=== PATIENT | male | born 1975 | race Caucasian/White ===

== ENCOUNTER 2019-10-14 03:48 | Emergency (ER) | payer OTHER ==
[~2019-10-14] VITALS: Ht 185.4 cm; Wt 88.4 kg
[2019-10-14 04:58] LABS: BASOPHILS % (AUTO) 0 % (0-10); EOSINOPHILS # (AUTO) 0.1 10^3/uL (0.0-0.3); EOSINOPHILS % (AUTO) 1 % (0-10); HEMATOCRIT 50 % (40-54); HEMOGLOBIN 16.7 G/DL (13.3-17.7); LYMPHOCYTES # (AUTO) 1.7 X 10^3 (1.0-4.0); LYMPHOCYTES % (AUTO) 30 % (12-44); MEAN CORPUSCULAR HEMOGLOBIN 27 PG (25-34); MEAN CORPUSCULAR HGB CONC 34 G/DL (32-36); MEAN CORPUSCULAR VOLUME 81 FL (80-99); MEAN PLATELET VOLUME 9.6 FL (7.4-10.4); MONOCYTES # (AUTO) 0.5 X 10^3 (0.0-1.0); MONOCYTES % (AUTO) 8 % (0-12); NEUTROPHILS # (AUTO) 3.5 X 10^3 (1.8-7.8); NEUTROPHILS % (AUTO) 61 % (42-75); PLATELET COUNT 227 10^3/uL (130-400); RED CELL DISTRIBUTION WIDTH 14.9 % (10.0-14.5); WHITE BLOOD COUNT 5.7 10^3/uL (4.3-11.0)
--- NOTE | 2019-10-14 05:15 | ED General ---
General Chief Complaint: General Problems/Pain Stated Complaint: HYPOTHERMIA Nursing Triage Note: C/O BEING VERY COLD AFTER FALLING ASLEEP IN HIS TRUCK, VERBALIZES HE IS LIVING IN HIS TRUCK. Nursing Sepsis Screen: No Definite Risk Source of Information: Patient Exam Limitations: No Limitations History of Present Illness Date Seen by Provider: Oct 14, 2019 Time Seen by Provider: 03:51 Initial Comments This 44-year-old man presents to the emergency room via EMS. He activated EMS from his truck at the [employer] parking lot where he was sleeping because he thought he was developing hypothermia. He does not have a stable home to stay in so he is been sleeping in his truck. Temperature for EMS was 96.8. Temperature during our assessment was 98.0. He has a wound on his right elbow from infiltration at an injection site. The integrity of the skin on his hands and feet is also poor. He has some areas where there appears to been bruised or hemorrhaged calluses and/or blisters. There may also be some old subtle frostbite injury on the toes. Patient intermittently uses methamphetamines. He has not used in a couple of days. He also occasionally drinks alcohol. Allergies and Home Medications Patient Home Medication List Home Medication List Reviewed: Yes Review of Systems Review of Systems Constitutional: see HPI Respiratory: no symptoms reported Cardiovascular: no symptoms reported Gastrointestinal: no symptoms reported Genitourinary: no symptoms reported Musculoskeletal: no symptoms reported Skin: no symptoms reported Psychiatric/Neurological: See HPI Hematologic/Lymphatic: No Symptoms Reported Past Muvofly-Amvcje-Oyaist Hx Past Med/Social Hx: Reviewed Nursing Past Med/Soc Hx Patient Social History Alcohol Use: Rarely Uses Recreational Drug Use: Yes Drug of Choice: METH Smoking Status: Current Everyday Smoker Type Used: Cigarettes 2nd Hand Smoke Exposure: No Recent Foreign Travel: No Contact w/Someone Who Travel: No Recent Infectious Disease Expo: No Recent Hopitalizations: No Physical Abuse: No Sexual Abuse: No Mistreated: No Fear: No Immunizations Up To Date Tetanus Booster (TDap): Unknown Seasonal Allergies Seasonal Allergies: No Past Medical History Surgeries: No Respiratory: No Cardiac: Yes Hypertension, Peripheral Vascular Neurological: No Genitourinary: No Gastrointestinal: No Musculoskeletal: No Endocrine: No HEENT: No Cancer: No Psychosocial: No Integumentary: No Blood Disorders: No Physical Exam Vital Signs Vital Signs - First Documented 10/14/19 03:50 Temp 36.7 Pulse 84 Resp 20 B/P (MAP) 154/107 (123) Pulse Ox 98 Capillary Refill : Greater Than 3 Seconds Height, Weight, BMI Height: '" Weight: lbs. oz. 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 Norm as Tested Skin: Normal Color, Warm/Dry, Other (Large ulcerative granulating skin wound on the right elbow.) Progress/Results/Core Measures Suspected Sepsis Recent Fever Within 48 Hours: No Infection Criteria Present: None New/Unexplained Altered Menta: No Sepsis Screen: No Definite Risk SIRS Temperature: Pulse: 84 Respiratory Rate: 20 Laboratory Tests 10/14/19 04:47: White Blood Count 5.7 Blood Pressure 154 /107 Mean: 123 Laboratory Tests 10/14/19 04:47: Creatinine 0.74, Platelet Count 227, Total Bilirubin 0.4 Results/Orders Lab Results Laboratory Tests Test 10/14/19 04:47 Range/Units White Blood Count 5.7 4.3-11.0 10^3/uL Red Blood Count 6.13 H 4.35-5.85 10^6/uL Hemoglobin 16.7 13.3-17.7 G/DL Hematocrit 50 40-54 % Mean Corpuscular Volume 81 80-99 FL Mean Corpuscular Hemoglobin 27 25-34 PG Mean Corpuscular Hemoglobin Concent 34 32-36 G/DL Red Cell Distribution Width 14.9 H 10.0-14.5 % Platelet Count 227 130-400 10^3/uL Mean Platelet Volume 9.6 7.4-10.4 FL Neutrophils (%) (Auto) 61 42-75 % Lymphocytes (%) (Auto) 30 12-44 % Monocytes (%) (Auto) 8 0-12 % Eosinophils (%) (Auto) 1 0-10 % Basophils (%) (Auto) 0 0-10 % Neutrophils # (Auto) 3.5 1.8-7.8 X 10^3 Lymphocytes # (Auto) 1.7 1.0-4.0 X 10^3 Monocytes # (Auto) 0.5 0.0-1.0 X 10^3 Eosinophils # (Auto) 0.1 0.0-0.3 10^3/uL Basophils # (Auto) 0.0 0.0-0.1 10^3/uL Sodium Level 138 135-145 MMOL/L Potassium Level 4.4 3.6-5.0 MMOL/L Chloride Level 103 98-107 MMOL/L Carbon Dioxide Level 21 21-32 MMOL/L Anion Gap 14 5-14 MMOL/L Blood Urea Nitrogen 11 7-18 MG/DL Creatinine 0.74 0.60-1.30 MG/DL Estimat Glomerular Filtration Rate > 60 BUN/Creatinine Ratio 15 Glucose Level 87 70-105 MG/DL Calcium Level 9.9 8.5-10.1 MG/DL Corrected Calcium 9.5 8.5-10.1 MG/DL Total Bilirubin 0.4 0.1-1.0 MG/DL Aspartate Amino Transf (AST/SGOT) 17 5-34 U/L Alanine Aminotransferase (ALT/SGPT) 15 0-55 U/L Alkaline Phosphatase 86 40-136 U/L Total Protein 7.7 6.4-8.2 GM/DL Albumin 4.5 3.2-4.5 GM/DL My Orders Orders - MELCHOR ZAVALA MD Cbc With Automated Diff (10/14/19 04:14) Comprehensive Metabolic Panel (10/14/19 04:14) Ed Iv/Invasive Line Start (10/14/19 04:14) General/Regular (10/14/19 Breakfast) Vital Signs/I&O 10/14/19 10/14/19 03:50 06:20 Temp 36.7 36.7 Pulse 84 84 Resp 20 20 B/P (MAP) 154/107 (123) 146/102 (123) Pulse Ox 98 98 Capillary Refill : Greater Than 3 Seconds Blood Pressure Mean: 123 Departure Impression Primary Impression: Chronic wound of extremity Additional Impression: Cold exposure Qualified Codes: T69.9XXA - Effect of reduced temperature, unspecified, initial encounter Disposition: HOME, SELF-CARE Condition: Stable Departure-Patient Inst. Decision time for Depature: 05:45 Referrals: [facility] [place],LOCAL PHYSICIAN (PCP) Primary Care Physician Patient Instructions: Wound Care (DC) Add. Discharge Instructions: Follow-up with a doctor as soon as possible for management of your wound. Keep the wound covered with clean dressing to avoid contamination. Monitor for signs of infection. Return to care if you have worsening symptoms. All discharge instructions reviewed with patient and/or family. Voiced understanding. MELCHOR ZAVALA MD Oct 14, 2019 05:15
[2019-10-14 05:22] LABS: BUN/CREATININE RATIO 15; CARBON DIOXIDE 21 MMOL/L (21-32); CHLORIDE 103 MMOL/L (98-107); CREATININE SERUM 0.74 MG/DL (0.60-1.30); GFR ESTIMATED > 60; POTASSIUM 4.4 MMOL/L (3.6-5.0); SODIUM 138 MMOL/L (135-145)
[2019-10-14 05:23] LABS: ALANINE AMINOTRANSFERASE 15 U/L (0-55); ALBUMIN 4.5 GM/DL (3.2-4.5); ALKALINE PHOSPHATASE 86 U/L (40-136); BILIRUBIN,TOTAL 0.4 MG/DL (0.1-1.0); CALCIUM 9.9 MG/DL (8.5-10.1); GLUCOSE 87 MG/DL (70-105); TOTAL PROTEIN 7.7 GM/DL (6.4-8.2)
[2019-10-14 06:20] VITALS: BP 146/102
== END 2019-10-14 06:21 | disposition home or self-care (01) ==
LOC: ER 03:51
DX: S51.001A Unspecified open wound of right elbow, initial encounter (principal); T69.9XXA Effect of reduced temperature, unspecified, initial encounter; I10 Essential (primary) hypertension; F17.210 Nicotine dependence, cigarettes, uncomplicated; X58.XXXA Exposure to other specified factors, initial encounter
CPT/HCPCS: 36415; 80053; 85025